=== PATIENT | female | born 1935 | race Caucasian/White ===

== ENCOUNTER 2021-03-26 21:29 | Emergency (ER) | payer OTHER ==
[~2021-03-26] VITALS: Ht 167.6 cm; Wt 67.6 kg
[2021-03-26] MEDS ORDERED: SUPER THERAVIT1 EACH PO (21:41)
[2021-03-26 22:08] LABS: ABSOLUTE EOSINOPHILS 0.1 thou/uL (0.0-0.7); ABSOLUTE LYMPHOCYTES 2.4 thou/uL (0.8-5.3); ABSOLUTE MONOCYTES 0.6 thou/uL (0.0-1.2); ABSOLUTE NEUTROPHILS 3.5 thou/uL (1.6-8.1); BASOPHILS 0.5 %; EOSINOPHILS 1.2 %; HEMATOCRIT 41.4 % (37.0-47.0); HEMOGLOBIN 14.3 gm/dL (12.0-15.0); LYMPHOCYTES 36.5 %; MCH 35.3 pg (26.0-34.0); MCHC 34.4 g/dL (28.0-37.0); MCV 102.7 fL (80.0-100.0); MONOCYTES 9.3 %; MPV 7.2 fl. (7.2-11.1); NUCLEATED RBCS 0 /100WBC; PLATELET COUNT* 193 thou/uL (150-400); POLYS 52.5 %; RBC 4.03 mil/uL (4.20-5.00); RDW-CV 12.9 % (10.5-14.5); WBC 6.6 thou/uL (4.0-11.0)
[2021-03-26 22:11] LABS: CALCIUM 8.8 mg/dL (8.5-10.1); CREATININE 0.9 mg/dL (0.6-1.3); POTASSIUM 3.7 mmol/L (3.5-5.1)
[2021-03-26 22:15] LABS: APTT 25.3 Seconds (25.0-31.3); PROTIME 9.8 Seconds (9.20-11.50)
[2021-03-26 22:16] LABS: ALBUMIN 3.7 g/dL (3.4-5.0); TOTAL BILIRUBIN 0.3 mg/dL (<0.1-1.0)
[2021-03-27 00:28] VITALS: BP 185/96
--- NOTE | 2021-03-27 10:02 | EKG ---
[place] [address] ELECTROCARDIOGRAM REPORT Name: REAL GUNTER [id number] Admission: 03/26/21 Attend Phys: Discharge: 03/27/21 Date of : [birth year] Date of Service: 03/26/212134 Report #: [id number] THIS REPORT FOR: //name// [facility] ED Test Date: 2021-03-26 Test Time: 21:35:48 Pat Name: REAL GUNTER Department: Room: Gender: Loan Manager: [place] : [id number] Requested By: Sridhar Pablo Order Number: [id number] MD: Evert Romero Measurements Intervals [place] Rate: 87 P: 62 MN: 172 QRS: 46 QRSD: 86 T: 29 QT: 363 QTc: 437 Interpretive Statements Sinus rhythm Atrial premature complex Left atrial enlargement No previous ECG available for comparison Electronically Signed On 03-27-2021 10:02:39 [employer] by Evert Romero [email or web address] <ELECTRONICALLY SIGNED> By: Evert Romero MD, [facility] 03/27/21 [facility] 34 34 Evert Romero MD, [facility] /EPI
== END 2021-03-27 00:20 | disposition short-term general hospital (02) ==
LOC: M.ERS 21:29
PROVIDERS: Physician Assistant
DX: S02.85XA Fracture of orbit, unspecified, initial encounter for closed fracture (principal); Z20.822 Contact with and (suspected) exposure to COVID-19; S00.03XA Contusion of scalp, initial encounter; F32.9 Major depressive disorder, single episode, unspecified; I10 Essential (primary) hypertension; Z79.899 Other long term (current) drug therapy; W01.0XXA Fall on same level from slipping, tripping and stumbling without subsequent striking against object, initial encounter; Y93.89 Activity, other specified; Y92.89 Other specified places as the place of occurrence of the external cause; Y99.8 Other external cause status